=== PATIENT | male | born 1995 | race Caucasian/White ===

== ENCOUNTER 2016-05-13 12:06 | Emergency (ER) | payer OTHER ==
[2016-05-13] MEDS ORDERED: KETOROLAC 60 MG/2 ML VIAL IM STA (14:07)
--- NOTE | 2016-05-13 14:07 | ED ---
General Adult HPI - General Chief complaint: Headache Stated complaint: migraine Time Seen by Provider: 05/13/16 13:41 Source: patient, RN notes reviewed Mode of arrival: ambulatory Limitations: no limitations - History of Present Illness Initial comments: 21-year-old male presents to the emergency room chief complaint of left-sided facial pain and left-sided headache. Patient states when hehad a cough. Patient states he continues to have the throbbing type pain and left-sided face and tenderness to palpation under the eyelid lots of nasal drainage. Patient states that about a week that he's been feeling ill. Patient states he tried Motrin he tried Tylenol with no improvement in symptoms. Patient denies any fever chills. Patient states she was concerned due to his continued pain and symptoms without that he should be evaluated. Patient denies any recent fever, chills, shortness of breath, chest pain, back pain, abdominal pain, nausea vomiting, numbness or tingling, dysuria or hematuria, constipation or diarrhea, visual changes, or any other current symptoms. - Related Data Home Medications Medication Instructions Recorded Confirmed Citalopram Hydrobromide [CeleXA] 10 mg PO DAILY 05/13/16 05/13/16 Levothyroxine Sodium [Synthroid] 100 mcg PO DAILY 05/13/16 05/13/16 Montelukast [Singulair] 10 mg PO DAILY 05/13/16 05/13/16 Previous Rx's Medication Instructions Recorded Amoxicillin/Potassium Clav 1 tab PO Q12HR #20 tab 05/13/16 [Augmentin 875-125 Tablet] Allergies Allergy/AdvReac Type Severity Reaction Status Date / Time brompheniramine Allergy Rash/Hives Verified 05/13/16 14:05 [From Dimetapp (brompheniramine-PPA)] phenylpropanolamine Allergy Rash/Hives Verified 05/13/16 14:05 [From Dimetapp (brompheniramine-PPA)] Review of Systems ROS Statement: Those systems with pertinent positive or pertinent negative responses have been documented in the HPI. ROS Other: All systems not noted in ROS Statement are negative. Past Medical History Past Medical History: Asthma, Thyroid Disorder History of Any Multi-Drug Resistant Organisms: None Reported Past Surgical History: Adenoidectomy Past Psychological History: Anxiety, Depression Smoking Status: Current every day smoker Past Alcohol Use History: None Reported Past Drug Use History: None Reported General Exam - General Exam Comments Initial Comments: General exam: Alert, active, comfortable in no apparent distress Head: Normocephalic, tenderness over the left maxillary sinus Eyes: Normal reaction of pupils, equal size, normal range of extraocular motion Ears: normal external ear canals, pink tympanic membranes with normal cone of light Nose: clear with pink turbinates Throat: no erythema or exudates with normal sized tonsils Neck: no masses, no nuchal rigidity Chest: no chest wall deformity Lungs: equal air entry with no crackles or wheeze CVS: S1 and S2 normal with no audible mumurs, regular rhythm Abdomen: no hepatosplenomegaly, normal bowel sounds, no guarding or rigidity Spine: no scoliosis or deformity Skin: no rashes Neurological: No focal deficits, tone is normal in all 4 extremities Limitations: no limitations Course Vital Signs 05/13/16 12:29 Temperature 98.6 F Pulse Rate 82 Respiratory 20 Rate Blood Pressure 136/60 O2 Sat by Pulse 96 Oximetry Medical Decision Making - Medical Decision Making 21-year-old male presents for what appears to be a sinusitis. Patient has tenderness under the eye to palpation in the 80s have drainage and headaches due to a sinusitis. We will start patient on Augmentin. We discussed using medication as prescribed. We discussed return parameters and follow-up. Patient stated that he understood all questions have been answered. He'll be discharged. Disposition Clinical Impression: Acute maxillary sinusitis Disposition: HOME SELF-CARE Condition: Stable Instructions: Sinusitis (ED) Additional Instructions: Please use medication as discussed. Please follow up with family doctor if symptoms have not improved over the next two days. Please return to the emergency room if your symptoms increase or worsen or for any other concerns. Prescriptions: Amoxicillin/Potassium Clav [Augmentin 875-125 Tablet] 1 tab PO Q12HR #20 tab Referrals: None,Stated [Primary Care Provider] - 1-2 days Marianela Galvan MD [STAFF PHYSICIAN] - 1-2 days Time of Disposition: 14:07
[2016-05-13 14:18] VITALS: BP 145/71; PULSE 69; RESP 18; TEMP 97.4
== END 2016-05-13 14:39 | disposition home or self-care (01) ==
LOC: EC 12:06
DX: J01.00 Acute maxillary sinusitis, unspecified (principal); E07.9 Disorder of thyroid, unspecified; J45.909 Unspecified asthma, uncomplicated; F32.9 Major depressive disorder, single episode, unspecified; F17.200 Nicotine dependence, unspecified, uncomplicated; Z88.8 Allergy status to other drugs, medicaments and biological substances; Z79.899 Other long term (current) drug therapy
CPT/HCPCS: 99283